=== PATIENT | male | born 1960 | race Caucasian/White ===

== ENCOUNTER 2020-11-04 07:41 | Observation (INO) ==
--- NOTE | 2020-09-30 13:50 | PAT Medication Instructions ---
Medication Instructions Date of Service September 30, 2020 Home Medications buspirone 15 mg tablet 15 mg PO TID naproxen sodium 220 mg tablet (Aleve) 220 mg PO BID PRN ASK your surgeon for instructions naproxen sodium 220 mg tablet (Aleve) 220 mg PO BID PRN Take morning of surgery With a small sip of water, OTHERWISE NOTHING TO EAT OR DRINK AFTER MIDNIGHT: buspirone 15 mg tablet 15 mg PO TID Other Notes If you have any questions please call us at [phone] or [phone] or [phone] or [phone]
--- NOTE | 2020-10-04 08:45 | Anesthesiology Consultation ---
Date of Service October 04, 2020 Assessment & Plan (1) Encounter for pre-operative examination: COVID screening: Per assessment on 10/04: Travel screen negative, no known COVID- 19 positive contacts or current COVID-19 related symptoms. Initial COVID vaccine 09/27. Second dose scheduled 10/25. Surgeon arranging preop COVID testing. Awaiting results. Chart Review Chart Review: Acceptable Risk for Surgery and Patient seen in Pre Admission Testing Teaching & Discussion Pre-Anesthesia Teaching/Discussion Notes: Instructed NPO after midnight before surgery,except medications with 15 cc of water. Medication instructions provided according to the PAT guidelines. History Surgery Operation Date: 11/04/20 14:05 Proposed Procedures p Right Anterior Total Hip Replacement - Raymundo Montalvo DO Height/Weight Height: 5 ft 10 in Weight: 121.6 kg Allergies Allergy/AdvReac Type Severity Reaction Status Date / Time No Known Allergies Allergy Unknown Verified 09/27/20 11:11 Medications Home Medications Medication Instructions Recorded Confirmed Last Taken buspirone 15 mg tablet 15 mg PO TID 09/27/20 09/27/20 Unknown naproxen sodium 220 mg tablet 220 mg PO BID PRN 09/27/20 09/27/20 Unknown (Aleve) Past Medical History Medical History Obesity Osteoarthritis Vertigo Pt states this is the reason for taking Buspirone Exercise / Class Metabolic Activity II 4-5 Yardwork/Stairs/Walk up hill (one FS (no CP, no SOB)) Past Surgical History Surgical History History of tooth extraction Hx of colonoscopy Hx of foot surgery Foreign body removal Past Anesthesia History No Hx of Anesthesia Complications and No Family Hx of Anesthesia Complications History of PONV No Hx of PONV and Hx of Motion Sickness (+ vertigo) Social History Smoking Status: Never smoker Do You Dip or Chew Tobacco: No Hx Alcohol Use: Yes alcohol intake frequency: a few times a week Hx Substance Use: No substance use type: does not use Review of Systems Patient denies chest pain, shortness of breath, dyspnea on exertion, fever, chills, cough, wheezing, palpitations. Physical Exam Vital Signs VITALS BP 127/79 P 65 TEMP 98.2 SP02 97%RA RESP 16 PHYSICAL Full cervical extension range of motion. Full TMJ range of motion. TMD 4 finger breaths Mallampati Score 3 Dentition: missing molars, left lower side tooth "repair" Lungs: clear throughout to auscultation Cardiac: regular rate and rhythm, no murmurs noted Spine: normal Carotid arteries: negative bruit Extremities: no edema Trimmed lakhani Short, thick neck Lab Results Anesthesia Preop Results Results Anesthesia Widget: WBC 6.30 K/uL (4.8-10.8) 10/04/20 Hgb 15.0 g/dL (14.0-18.0) 10/04/20 Hct 44.7 % (42-52) 10/04/20 Plt 206 K/uL (130-400) 10/04/20 Na 139 mmol/L (136-145) 10/04/20 K 4.5 mmol/L (3.5-5.1) 10/04/20 Cl 109 mmol/L (98-107) H 10/04/20 CO2 28 mmol/L (21-32) 10/04/20 BUN 19 mg/dl (7-18) H 10/04/20 Creat 0.80 mg/dl (0.6-1.4) 10/04/20 Glucose Level 91 mg/dl (70-99) 10/04/20 PT 9.8 Seconds (9.0-12.0) 10/04/20 PTT 26.0 Seconds (21.0-31.0) 10/04/20 INR 1.0 (0.9-1.1) 10/04/20 Blood Type A Negative 10/04/20 Antibody Screen NEGATIVE 10/04/20 Testing Electrocardiogram Date: 10/04/20 Normal sinus rhythm with sinus arrhythmia at 60 bpm. Unconfirmed report. Chest X-Ray Date: 10/04/20 Findings: + NAD
--- NOTE | 2020-11-03 16:47 | History & Physical Report ---
Date of Service November 03, 2020 Assessment & Plan (1) Osteoarthritis of right hip: We will proceed with a right anterior total hip arthroplasty. Postoperatively he will be started on aspirin for DVT prophylaxis and kept overnight in the hospital for postoperative medical management. [facility]. History of Present Illness Chief Complaint: Osteoarthritis of the right hip. 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 He has been having chronic worsening right hip and groin pain. X-rays and clinical examination have been diagnostic for advanced osteoarthritis of the right hip. After failing conservative treatment, he has elected to proceed with a right anterior total hip arthroplasty.. Allergies Allergy/AdvReac Type Severity Reaction Status Date / Time No Known Allergies Allergy Unknown Verified 09/27/20 11:11 Home Medications Medication Instructions Recorded Confirmed Type buspirone 15 mg tablet 15 mg PO TID 09/27/20 09/27/20 History naproxen sodium 220 mg tablet 220 mg PO BID PRN 09/27/20 09/27/20 History (Aleve) Past Med/Surg History Medical History Obesity Osteoarthritis Vertigo Pt states this is the reason for taking Buspirone Surgical History History of tooth extraction Hx of colonoscopy Hx of foot surgery Foreign body removal Social History Smoking Status: Never smoker Second Hand Exposure: No; Hx Alcohol Use: Yes Hx Substance Use: No Preferred Language: Hebrew Communication Ability: Effective Exchange Administrator Required: No Beliefs That Will Affect Care: None Current Living Situation: Spouse Feels Safe at Home: Yes Assistive Devices: Glasses Review of Systems All systems reviewed & are unremarkable except as noted in HPI & below. Physical Exam On physical examination the right hip, he has decreased range of motion. He has pain with forced internal and external rotation. His leg lengths are equal.. Constitutional WD/WN, vitals as above Eyes PERRL, conjunctivae normal, anicteric sclerae ENMT external ear and nose normal, oropharynx normal Neck trachea midline, no thyromegaly Respiratory normal respiratory effort Cardiovascular RRR, no murmur, no edema Gastrointestinal (Abdomen) normal bowel sounds, soft, nontender, no hepatosplenomegaly Psychiatric A+Ox3, euthymic affect Results & Data Results & Data Laboratory Results . Diagnostic Findings X-rays of the right hip do show advanced osteoarthritis with joint space narrowing, osteophyte formation, and [id number] articulation. PG Care Time/CCT Total # of Minutes Spent Total Time Spent with Patient: Total time spent is greater than 50% in coordination of care (as documented) at patient's floor/unit and/or counseling patient: Coding Level of Care Code None Diagnoses Osteoarthritis of right hip M16.11
[~2020-11-04 07:41] MED LIST: ACETAMINOPHEN 500 MG TAB PO SCH; BUPIVACAINE 0.5 % 5 MG/1 ML PF 10ML VIAL ONE; FAMOTIDINE 20 MG TAB PO SCH; GABAPENTIN 600 MG DOSE PO SCH; LR 500ML BOLUS, THEN 15ML/HR IV SCH; LR 60ML/HR IV SCH; ROPIVACAINE 0.5% HCL/PF 150 MG, BUPIVACAINE 0.75% MPF 20 ML, EPINEPHrine 30MG/30ML (OR ... INSTIL SCH; TRANEXAMIC ACID 1,000 MG **IV Pre-op IV SCH; TRANEXAMIC ACID 1,000 MG in 0.9 % SODIUM CHLORIDE 100 ML IR SCH; dexAMETHasone 4 MG TAB PO SCH
--- NOTE | 2020-11-04 08:10 | History & Physical Bridge Note ---
Date of Service November 04, 2020 History & Physical Bridge Note I have examined the patient, reviewed the History & Physical and in the interval since the performance of the History & Physical I have noted the following changes of clinical significance: no changes noted
[2020-11-04] MEDS ORDERED: MIDAZOLAM HCL 1 MG/ML 2ML VIAL ONE (09:20)
[2020-11-04] MEDS ORDERED: fentaNYL citrate 100 MCG/2 ML VIAL ONE (09:20)
[2020-11-04] MEDS ORDERED: fentaNYL citrate 100 MCG/2 ML VIAL IV PRN (10:04)
[2020-11-04] MEDS ORDERED: ONDANSETRON INJ 2 MG/ML 2 ML VIAL IV PRN ×2 (10:04→13:40)
[2020-11-04] MEDS ORDERED: ATROPINE SULFATE 0.1 MG/ML 10ML SYR IV PRN (10:04)
[2020-11-04] MEDS ORDERED: ePHEDrine sulfate 50 MG/ML AMP IV PRN (10:04)
[2020-11-04] MEDS ORDERED: ORTHO JOINT ANESTHETIC ONE (10:48)
[2020-11-04] MEDS ORDERED: GLYCOPYRROLATE 0.2 MG/ML VIAL ONE (11:23)
[2020-11-04] MEDS ORDERED: ONDANSETRON INJ 2 MG/ML 2 ML VIAL ONE (11:24)
[2020-11-04] MEDS ORDERED: PROPOFOL IV EMULSION 10 MG/ML 20 ML VIAL IV ONE (11:24)
--- NOTE | 2020-11-04 12:27 | Operative Report ---
PG Post Operative Report Pre & Post Diagnosis Operation Date: 11/04/20 10:00 Pre-Op Diagnosis: Right Hip Osteoarthritis Post-Op Diagnosis: Right Hip Osteoarthritis I identified the patient and participated in the time-out.: Yes Procedure Operation Date: 11/04/20 10:00 Actual Procedures p Right Anterior Total Hip Arthroplasty, Uncemented(Right) - Raymundo Montalvo DO Surgeon Raymundo Montalvo DO Slabber Raymundo Hamlin PAC Estimated Blood Loss 300 Findings Consistent with Post-Op Diagnosis Specimens Right femoral head Complications none Disposition Disposition: Recovery Room Indications Raad is a pleasant 60-year-old male who is been doing chronic increasing right hip and groin pain. X-rays and clinical examination have been diagnostic for advanced osteoarthritis of the right hip. After failing conservative treatment, he has elected proceed with a right total hip arthroplasty. Description of Procedure Implants used I used a [employer]immer[employer]omet total hip arthroplasty system with a size 4 standard offset Avenir Complete stem, a 54 mm G7 cup, an E1 polyethylene liner, a 40 mm ceramic head with a 0 neck. Raad arrived at the hospital for the above procedure. He was seen in the preoperative holding area and the operative extremity was identified and signed. He was given a spinal anesthetic, a preoperative antibiotic, and TXA. He was then taken back to the operating room and laid on the table in the supine position. He was given basic sedation. The operative leg was secured to a Puristst leg positioner. The hip was then prepped and draped in sterile fashion. A timeout was done and the patient and the operative extremity was properly identified. An anterior approach was used. Dissection was taken down through the fascia and the tensor muscle belly was retracted laterally and the rectus was retracted medially. The circumflex vessels were identified and ligated. The capsule was then incised and tagged for later repair. The femoral neck was then cut and the femoral head was removed. The acetabulum was exposed. Time was spent doing a complete circumferential labral release. Sequential reaming of the acetabulum up to a size 53 reamer was done. Final reamings were done under fluoroscopy to ensure appropriate version. A Biomet 54 mm G7 cup was then impacted into place. The E1 polyethylene liner was then snapped into place. Surrounding soft tissues were then injected with 100 cc of an orthopedic pain control cocktail. The proximal femur was then exposed. Sequential broaching up to a size broach was done. Off that broach a size 40 head with a 0 neck was trialed. The hip was reduced and fluoroscopic images showed anatomic alignment of the implants in acceptable length. The broach was removed. The final size 4 standard offset Avenir Complete stem was then impacted into place. A ceramic 40 mm head with a 0 neck was then impacted onto the stem and the hip was reduced. Final fluoroscopic images showed anatomic alignment of the hip. The capsule was then closed with #1 Vicryl suture. A dilute betadyne lavage was then done for 3 minutes. The joint was then irrigated with normal saline solution. The fascia was closed with #1 PDS suture. Skin was closed with 2-0 Vicryl, timbo, and a Silverlon dressing. He was then transferred to a hospital bed and taken to the post anesthesia care unit in stable condition. He tolerated the procedure well. Raymundo Hamlin PA-C, was present for the entire procedure. He was critical for patient positioning, prepping, draping, retraction exposure, wound closure and application of sterile dressing. I attest to the content of the Intraoperative Record and any orders documented therein. Any exceptions are noted below.
--- NOTE | 2020-11-04 12:36 | Fluoroscopy Report ---
FL hip RT 1V CLINICAL HISTORY: RT ANT COMPARISON STUDY: None FLUOROSCOPY TIME: 22nd. NUMBER OF FLUOROSCOPIC IMAGES: 2 FINDINGS: Intraoperative fluoroscopic images presented for review and show acetabular and femoral component of the right hip prosthetic joint which is appear to be in expected position. IMPRESSION: As above. ACT 112: Negative or not required by law. The above report was generated using voice recognition software. It may contain grammatical, syntax o r spelling errors. Electronically signed by: Naida Fine DO 11/04/2020 12:35 PM
--- NOTE | 2020-11-04 13:20 | XRay Report ---
AP PELVIS, AP AND CROSSTABLE LATERAL RIGHT HIP History: Right total hip arthroplasty. Degenerative arthritis. Postop. FINDINGS: The patient is status post a right total hip arthroplasty. The hardware is intact. No fract ure or dislocation. Skin timbo are in place. There is severe osteoarthritis within the left hip wit h flattening of the superior femoral head. This may represent superimposed avascular necrosis. IMPRESSION: Right total hip arthroplasty. No evidence for hardware complication. There is severe osteoarthritis w ithin the left hip with suggestion of superimposed avascular necrosis. ACT 112: Negative or not required by law. Electronically signed by: Beck Wynn M.D. 11/04/2020 1:19 PM
--- NOTE | 2020-11-04 13:20 | Anesthesiology Progress Note ---
Date of Service November 04, 2020 Anesthesia Post Procedure Vital Signs Vital Signs: Temp Pulse Resp BP Pulse Ox 11/04/20 13:15 79 16 108/71 94 11/04/20 13:05 83 16 108/71 92 11/04/20 12:55 82 16 105/75 96 11/04/20 12:49 97.5 F L 91 H 16 105/70 96 11/04/20 08:08 98.2 F 65 18 128/78 96 Pain Intensity Right Hip: Pain Intensity: 0 Transfer of Care Handoff Completed per policy Notes Mental Status: alert / awake / arousable and participated in evaluation Patient Amnestic to Procedure: Yes Nausea / Vomiting: adequately controlled Pain: adequately controlled Airway Patency, RR, SpO2: stable & adequate BP & HR: stable & adequate Hydration State: stable & adequate Neuraxial Anesthesia: was administered and sensory block is resolving Anesthetic Complications: no major complications apparent and Pt Satisfied with anesthetic care
[2020-11-04] MEDS ORDERED: SODIUM CHLORIDE 0.9% 1000ML 1,000 ML IV SCH (13:40)
[2020-11-04] MEDS ORDERED: NALOXONE HCL 0.4 MG/1 ML VIAL/CARP IV PRN (13:40)
[2020-11-04] MEDS ORDERED: MAGNESIUM HYDROXIDE SUSP 30 ML UDC PO PRN (13:40)
[2020-11-04] MEDS ORDERED: oxyCODONE HCL IR 5 MG TAB (IMMEDIATE RELEASE) PO PRN (13:40)
[2020-11-04] MEDS ORDERED: HYDROmorphone INJ 0.5 MG/0.5 ML SYR IV PRN (13:40)
[2020-11-04] MEDS ORDERED: bisacodyL 10 MG SUPP PR PRN (13:40)
[2020-11-04] MEDS ORDERED: METOCLOPRAMIDE HCL INJ 5 MG/ML 2 ML VIAL IV PRN (13:40)
[2020-11-04] MEDS: ACETAMINOPHEN 500 MG TAB PO SCH ×2 (14:18→22:31)
[2020-11-04] MEDS: busPIRone 15 MG TAB PO SCH ×2 (14:18→22:31)
[2020-11-04] MEDS: KETOROLAC 30 MG/ML VIAL IV SCH ×2 (16:47→22:32)
[2020-11-04] MEDS: ceFAZolin 2000MG 2,000 MG/15 ML SYR IV SCH (18:08)
[2020-11-04] MEDS ORDERED: SENNA 8.6 MG TAB PO SCH (21:00)
[2020-11-04] MEDS: ASPIRIN 81 MG ECTAB PO SCH (22:30)
[2020-11-04] MEDS: DOCUSATE SODIUM 100 MG CAP PO SCH (22:32)
[2020-11-05] MEDS: ceFAZolin 2000MG 2,000 MG/15 ML SYR IV SCH (03:11)
[2020-11-05] MEDS: KETOROLAC 30 MG/ML VIAL IV SCH ×2 (03:11→08:31)
[2020-11-05] MEDS: ACETAMINOPHEN 500 MG TAB PO SCH (05:45)
--- NOTE | 2020-11-05 07:55 | Orthopedic Progress Note ---
Date of Service November 05, 2020 Assessment & Plan (1) Status post right hip replacement: Overall is doing well. Is not any much pain in the right hip. He will be seen by physical therapy today for ambulation and range of motion exercises. He is on aspirin twice a day for DVT prophylaxis. If he is doing okay he can be discharged home later today. He will follow-up with orthopedics in 2 weeks. Subjective Raad was seen and examined at bedside this morning. Overall is doing fairly well. Is not having too much pain in the hip. He has been up and ambulating into the hallways. He has no complaints.. Review of Systems All systems reviewed & are unremarkable except as noted in HPI & below. Physical Exam On physical examination of the right hip, the dressing is clean and dry. His leg lengths are equal. He has active dorsiflexion and plantarflexion of his right ankle.. Results & Data Results & Data Laboratory Results . Diagnostic Findings Postoperative x-rays of the right hip show the prosthesis to be in anatomic alignment without any evidence of fracture, dislocation, or loosening. PG Care Time/CCT Total # of Minutes Spent Total Time Spent with Patient: Total time spent is greater than 50% in coordination of care (as documented) at patient's floor/unit and/or counseling patient: Coding Level of Care Code 54384 Post Operative Follow-Up Diagnoses Status post right hip replacement Z96.641
--- NOTE | 2020-11-05 07:57 | Discharge Summary ---
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 He has been having chronic worsening right hip and groin pain. X-rays and clinical examination have been diagnostic for advanced osteoarthritis of the right hip. After failing conservative treatment, he has elected to proceed with a right anterior total hip arthroplasty.. Admission Exam (Per Admitting) On physical examination the right hip, he has decreased range of motion. He has pain with forced internal and external rotation. His leg lengths are equal.. Principal Diagnosis Same as "Discharge Diagnosis" noted below under Discharge Instructions. Discharge Exam On physical examination of the right hip, the dressing is clean and dry. His leg lengths are equal. He has active dorsiflexion and plantarflexion of his right ankle.. Discharge Data Procedures Performed Operation Date: 11/04/20 10:00 Actual Procedures p Right Anterior Total Hip Arthroplasty, Uncemented(Right) - Raymundo Montalvo DO Ordered Studies 11/04/20 10:00 FL hip RT 1V Routine Hospital Course (1) Status post right hip replacement: On November 04, 2020 Raad arrived at [facility] and underwent a right hip replacement without complication. He had a spinal anesthetic. Postoperatively he was started on aspirin for DVT prophylaxis and transferred to the general orthopedic floors. His hospital course was uneventful. On postop day #1 his vital signs were stable and his pain was well controlled. He was able to participate well with physical therapy with ambulation and range of motion exercises. He was then discharged home. He will follow-up with orthopedics in 2 weeks. PG Care Time/CCT Total # of Minutes Spent Total Time Spent with Patient: Total time spent is greater than 50% in coordination of care (as documented) at patient's floor/unit and/or counseling patient: Discharge Plan Discharge Items Patient Disposition: Home - Home Health Services Reason For Visit: Right Hip Osteoarthritis Discharge Diagnosis: Right hip replacement Activity: As commented below Non-emergency contact: Surgeon Call non-emergency contact if: your wound has increased redness and your wound has increased drainage Follow-up/Referrals: Axel Romeo MD [Primary Care Provider] - Diet: Regular Addtl Attending Provider Instructions: Activity and Therapy Recommendations: * If you are using [facility] then therapy will be provided at your home until they feel you have accomplished all of your goals. * If you are using [facility] then Physical Therapy will be provided until they feel you are ready to start Outpatient Physical Therapy. * If you are not using home therapy then Outpatient Physical Therapy should start about 3-5 days from your day of surgery. Therapy will last about 6-10 weeks * You were shown a series of exercises in the hospital. Do these exercises three times each day including the exercises you were shown in physical therapy. * Get up and walk several times each day.~ For the first four weeks, try not to stand or walk for more than one hour at a time. If you do stand or walk for more than one hour, you will not hurt anything, but your leg will likely swell.~~ * As you feel comfortable, you may change from the walker or crutches to a cane and~then to independent walking. Medications: * Narcotic You will likely be sent home from the hospital with a prescription for the narcotic pain medication that worked best throughout your stay. * Aspirin Most patients will be required to take Aspirin 81mg twice a day for 6 weeks after surgery. This is obtained [id number] and a prescription is not necessary. * Other medications may be prescribed for specific circumstances. If you have any questions, please call the office at . * Resume previous home medications unless otherwise instructed TEDs/Elastic Stockings: The white elastic stockings help limit swelling and prevent blood clots from forming in your legs. The more you wear them, the more they work. Wear them for six weeks. Dressing Care: Leave the Silverlon dressing in place for 7 days. After 7 days you may remove the dressing. If the incision is not draining then you may leave the timbo open to air. If there is a little bit of drainage or if the timbo are getting stuck on your clothing then cover the incision with a dry dressing. The timbo will be removed at your 2 week follow-up appointment. Showering: You may shower with the Silverlon dressing in place. Do not let the shower spray hit the dressing directly. Pat the Silverlon dressing dry. If the dressing becomes wet underneath, then simply remove the dressing. Keep the incision dry until you are 7 days out from the day of surgery. After 7 days you may remove the Silverlon dressing and shower with the timbo exposed. Let soapy water run over the timbo and pat them dry. Do not scrub or soak the incision. Things To Watch For: * Drainage from the incision site that occurs more than one week after your surgery. * Increased redness at the incision site. * Fever above 102 degrees Fahrenheit. * Unusual chest pain or shortness of breath. * Call [facility] at with any of the above problems Follow-Up Visit: Follow-up with Dr. Montalvo's PA (Raymundo Hamlin) 2-3 weeks after your day of surgery. He will remove your timbo and answer any questions. If you have any additional questions or concerns, Dr Montalvo is usually in the office at the same time and will be available An appointment was probably scheduled when you signed-up for surgery in the office. If you have any questions call Office Instructions: More detailed instructions as well as Frequently Asked Questions were provided in a folder by our office when you signed-up for surgery. Please review these instructions when you get home. If you have any further questions or concerns, please feel free to call the office at [phone] Pending Studies at Discharge: No Stand-Alone Forms: My [facility], Smoking Cessation Medications and DC Order Prescriptions: New oxycodone 5 mg Tablet 5 mg PO Q4H PRN (Reason: pain) Qty: 30 RF: 0 aspirin 81 mg Tablet,Delayed Release (Dr/Ec) 81 mg PO BID Qty: 0 RF: 0 Continued naproxen sodium [Aleve] 220 mg Tablet 220 mg PO BID PRN (Reason: Pain) RF: 0 buspirone 15 mg Tablet 15 mg PO TID RF: 0 Discharge Orders: Discharge Order (Routine); Ordered 11/05/20 Ordered By: Raymundo Montalvo Admission Data Admit Date/Time: 11/04/20 12:48 Attending Provider: Raymundo Montalvo Admit Provider: Raymundo Montalvo Primary Care Provider: Axel Romeo
[2020-11-05] MEDS ORDERED: dexAMETHasone 4 MG TAB PO SCH (08:00)
[2020-11-05] MEDS: busPIRone 15 MG TAB PO SCH (08:24)
[2020-11-05] MEDS: DOCUSATE SODIUM 100 MG CAP PO SCH (08:24)
[2020-11-05] MEDS: ASPIRIN 81 MG ECTAB PO SCH (08:24)
[2020-11-05] MEDS ORDERED: MULTIVITAMIN TAB PO SCH (09:00)
== END 2020-11-05 13:09 | disposition home health service (06) ==
LOC: 3E 07:41 → ASU 07:41

== ENCOUNTER 2021-06-27 06:32 | Observation (INO) ==
--- NOTE | 2021-06-22 18:15 | History & Physical Report ---
Date of Service June 22, 2021 Assessment & Plan (1) Osteoarthritis of left hip: We will proceed with a left anterior total of arthroplasty. Postoperatively he will be started on aspirin for DVT prophylaxis and kept overnight in the hospital for postoperative medical management. He plans [facility] discharge. History of Present Illness Chief Complaint: Arthritis of the left hip. Primary Care Provider: Axel Romeo MD Raad is a pleasant 60-year-old male who has been dealing with chronic worsening left hip and groin pain. X-rays and clinical examination have been diagnostic for advanced osteoarthritis of the left hip. He underwent a right anterior total hip arthroplasty in November 2020 and did well. Unfortunately, he is dealing with a lot of left hip and groin pain. After failing extensive conservative treatment, he has elected proceed with a left anterior total hip arthroplasty.. Allergies Allergy/AdvReac Type Severity Reaction Status Date / Time No Known Allergies Allergy Unknown Verified 06/22/21 15:00 Home Medications Medication Instructions Recorded Confirmed Type buspirone 15 mg tablet 15 mg PO TID 09/27/20 06/22/21 History naproxen sodium 220 mg tablet 220 mg PO BID PRN 09/27/20 06/22/21 History (Aleve) amoxicillin 500 mg tablet 2,000 mg PO ONCE PRN #4 tab 02/01/21 06/22/21 Rx Past Med/Surg History Medical History Obesity Osteoarthritis Vertigo Pt states this is the reason for taking Buspirone Surgical History History of right hip replacement History of tooth extraction Hx of colonoscopy Hx of foot surgery Foreign body removal Hx of vasectomy Family History Father Family history of diabetes mellitus Other No family history of adverse response to anesthesia Social History Smoking Status: Never smoker Second Hand Exposure: No; Hx Alcohol Use: Yes Alcohol type: beer Preferred Language: Dominican Communication Ability: Effective 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 Physical Exam Examination of his left hip, he has pain in his groin. He is about 20 degrees of internal rotation and 20 degrees of external rotation. He has pain at end ranges of motion.. Constitutional WD/WN, vitals as above Eyes PERRL, conjunctivae normal, anicteric sclerae ENMT external ear and nose normal, oropharynx normal Neck trachea midline, no thyromegaly Respiratory normal respiratory effort Cardiovascular RRR, no murmur, no edema Gastrointestinal (Abdomen) normal bowel sounds, soft, nontender, no hepatosplenomegaly Psychiatric A+Ox3, euthymic affect Results & Data Results & Data Laboratory Results . Diagnostic Findings X-rays of the left hip and pelvis show advanced osteoarthritis with joint space narrowing, osteophyte formation, and [id number] articulation. PG Care Time/CCT Total # of Minutes Spent Total Time Spent with Patient: Total time spent is greater than 50% in coordination of care (as documented) at patient's floor/unit and/or counseling patient: Coding Level of Care Code None Diagnoses Osteoarthritis of left hip M16.12
--- NOTE | 2021-06-23 14:08 | Anesthesiology Consultation ---
Date of Service June 23, 2021 Assessment & Plan (1) Encounter for pre-operative examination: - COVID screening: Per assessment on 06/22: No known COVID-19 positive contacts or current COVID-19 related symptoms. Travel screen negative. Patient vaccinate d. Preop Covid test done 06/23 ([place]) is pending. - Preop labs: Patient was originally scheduled for 04/14/21 but surgery now r/s to 06/27/21. Preop labs done 03/15/21 were unremarkable but now out of date. Will update CBC, BMP, coags AM DOS. Chart Review Chart Review: Acceptable Risk for Surgery (pending preop labs AM DOS) and Patient NOT seen in Pre Admission Testing History Surgery Operation Date: 06/27/21 12:45 Proposed Procedures p Left Anterior Total Hip Arthroplasty - Raymundo Montalvo DO Height/Weight Height: 5 ft 10 in Weight: 117.934 kg Allergies Allergy/AdvReac Type Severity Reaction Status Date / Time No Known Allergies Allergy Unknown Verified 06/22/21 15:00 Medications Home Medications Medication Instructions Recorded Confirmed Last Taken buspirone 15 mg tablet 15 mg PO TID 09/27/20 06/22/21 11/04/20 05:15 naproxen sodium 220 mg tablet 220 mg PO BID PRN 09/27/20 06/22/21 2 Weeks Ago (Aleve) ~10/21/20 amoxicillin 500 mg tablet 2,000 mg PO ONCE PRN #4 tab 02/01/21 06/22/21 Unknown Past Medical History Medical History Obesity Osteoarthritis Vertigo Pt states this is the reason for taking Buspirone Past Family History Family History Father Family history of diabetes mellitus Other No family history of adverse response to anesthesia Past Surgical History Surgical History History of right hip replacement History of tooth extraction Hx of colonoscopy Hx of foot surgery Foreign body removal Hx of vasectomy Social History Smoking Status: Never smoker tobacco type: smokeless tobacco Do You Dip or Chew Tobacco: No (QUIT OVER 30 YEARS AGO) Hx Alcohol Use: Yes Alcohol type: beer alcohol intake frequency: a few times a week substance use type: does not use Testing Laboratory Results 03/15/21 WBC 6.92 H/H 15.4/45.5 PLATELETS 244 SODIUM 140 POTASSIUM 4.7 CHLORIDE 106 CO2 28 BUN 17 CREATININE 0.84 GLUCOSE 93 PT 10.4 PTT 26.9 INR 1.0 Electrocardiogram Date: 10/04/20 Normal sinus rhythm with sinus arrhythmia at 60 bpm. Normal EKG per cardio Chest X-Ray Date: 10/04/20 Findings: + NAD
[~2021-06-27 06:32] MED LIST changes: +BUPIVACAINE 0.5 % 5 MG/1 ML MPF 30ML VIAL ONE; -BUPIVACAINE 0.5 % 5 MG/1 ML PF 10ML VIAL ONE; +Ketorolac (*for OR use only*) 30 MG, dexAMETHasone 4 MG, KETAMINE HCL (**OR use only) 1... INFIL SCH; -LR 500ML BOLUS, THEN 15ML/HR IV SCH; -ROPIVACAINE 0.5% HCL/PF 150 MG, BUPIVACAINE 0.75% MPF 20 ML, EPINEPHrine 30MG/30ML (OR ... INSTIL SCH; +TRANEXAMIC ACID 1,000 MG **IV Intra-op IV SCH; -TRANEXAMIC ACID 1,000 MG in 0.9 % SODIUM CHLORIDE 100 ML IR SCH; +ceFAZolin 2000MG 2,000 MG/15 ML SYR IV SCH
[2021-06-27 07:07] LABS: Basophils # (auto) 0.06 K/uL (0-0.2); Basophils % (auto) 0.8 %; Eosinophils # (auto) 0.17 K/uL (0-0.5); Eosinophils % (auto) 2.2 %; Hematocrit (blood only) 46.3 % (42-52); Hemoglobin 15.9 g/dL (14.0-18.0); Immature Granulocytes # (auto) 0.01 K/uL (0.00-0.02); Immature Granulocytes % (auto) 0.1 %; Lymphocytes % (auto) 20.8 %; Mean Corpuscular Hemoglobin 30.5 pg (25-34); Mean Corpuscular Volume 88.7 fL (80-100); Mean Platelet Volume 9.1 fL (7.4-10.4); Monocytes # (auto) 0.73 K/uL (0.11-0.59); Monocytes % (auto) 9.5 %; Neutrophils # (auto) 5.11 K/uL (1.4-6.5); Neutrophils % (auto) 66.6 %; Platelet Count 251 K/uL (130-400); RDW Coefficient of Variation 13.1 % (11.5-14.5); RDW Standard Deviation 42.4 fL (36.4-46.3); Red Blood Count 5.22 M/uL (4.7-6.1); White Blood Count 7.68 K/uL (4.8-10.8)
[2021-06-27 07:14] LABS: Mean Corpuscular Hgb Conc 34.3 g/dL (32-36)
[2021-06-27 07:21] LABS: Partial Thromboplastin Time 27.3 Seconds (21.0-31.0); Prothrombin Time 10.6 Seconds (9.0-12.0)
[2021-06-27 07:30] LABS: BUN Creatinine Ratio 20.4 (10-20); Calcium 9.3 mg/dl (8.5-10.1); Creatinine Clr Calc Pharmacy 99.8 ml/min; Est GFR (African American) 95.4 ml/min; Est GFR (Non-African American) 82.3 ml/min; Potassium 4.1 mmol/L (3.5-5.1)
[2021-06-27] MEDS ORDERED: MIDAZOLAM HCL 1 MG/ML 2ML VIAL ONE (08:00)
[2021-06-27] MEDS ORDERED: fentaNYL citrate 100 MCG/2 ML VIAL ONE (08:00)
--- NOTE | 2021-06-27 08:23 | History & Physical Bridge Note ---
Date of Service June 27, 2021 History & Physical Bridge Note I have examined the patient, reviewed the History & Physical and in the interval since the performance of the History & Physical I have noted the following changes of clinical significance: no changes noted
[2021-06-27] MEDS ORDERED: ORTHO JOINT ANESTHETIC ONE (08:38)
[2021-06-27] MEDS ORDERED: fentaNYL citrate 100 MCG/2 ML VIAL IV PRN (09:04)
[2021-06-27] MEDS ORDERED: ONDANSETRON INJ 2 MG/ML 2 ML VIAL IV PRN ×2 (09:04→11:59)
[2021-06-27] MEDS ORDERED: ePHEDrine sulfate 50 MG/ML AMP IV PRN (09:04)
[2021-06-27] MEDS ORDERED: ATROPINE SULFATE 0.1 MG/ML 10ML SYR IV PRN (09:04)
[2021-06-27] MEDS ORDERED: PROPOFOL IV EMULSION 10 MG/ML 20 ML VIAL IV ONE (09:46)
[2021-06-27] MEDS ORDERED: LIDOCAINE 2% 2 ML VIAL/AMP(20MG/ML) INFIL ONE (09:46)
--- NOTE | 2021-06-27 10:44 | Operative Report ---
PG Post Operative Report Pre & Post Diagnosis Operation Date: 06/27/21 09:05 Pre-Op Diagnosis: Osteoarthritis of left hip Post-Op Diagnosis: Osteoarthritis of left hip I identified the patient and participated in the time-out.: Yes Procedure Operation Date: 06/27/21 09:05 Actual Procedures p Left Anterior Total Hip Arthroplasty(Left) - Raymundo Montalvo DO Surgeon Raymundo Montalvo, Pigment Processor Raymundo Hamlin PAC Estimated Blood Loss 250 Findings Consistent with Post-Op Diagnosis Specimens Left femoral head Complications none Disposition Disposition: Recovery Room Indications Raad is a pleasant 61-year-old male who is been dealing with chronic increasing left hip pain. X-rays and clinical examination have been diagnostic for advanced arthritis of the left hip. After failing conservative treatment, he elected proceed with a left anterior total hip arthroplasty. Description of Procedure Implants used I used a [employer]immer[employer] total hip arthroplasty system with a size 4 standard offset Avenir Complete stem, a 54mm G7 cup with a 25mm screw, an E1 polyethylene liner, a 40mm ceramic head with a +3.5 neck. Raad arrived at the hospital for the above procedure. He was seen in the preoperative holding area and the operative extremity was identified and signed. He was given a spinal anesthetic, a preoperative antibiotic, and TXA. He was then taken back to the operating room and laid on the table in the supine position. He was given basic sedation. The operative leg was secured to a Puristst leg positioner. The hip was then prepped and draped in sterile fashion. A timeout was done and the patient and the operative extremity was properly identified. An anterior approach was used. Dissection was taken down through the fascia and the tensor muscle belly was retracted laterally and the rectus was retracted medially. The circumflex vessels were identified and ligated. The capsule was then incised and tagged for later repair. The femoral neck was then cut and the femoral head was removed. The acetabulum was exposed. Time was spent doing a complete circumferential labral release. Sequential reaming of the acetabulum up to a size 53 reamer was done. Final reamings were done under fluoroscopy to ensure appropriate version. A Biomet 54mm G7 cup was then impacted into place. A single 25 mm screw was placed. The E1 polyethylene liner was then snapped into place. Surrounding soft tissues were then injected with 100 cc of an orthopedic pain control cocktail. The proximal femur was then exposed. Sequential broaching up to a size 4 broach was done. Off that broach a size 40 head with a +3.5 neck was trialed. The hip was reduced and fluoroscopic images showed anatomic alignment of the implants in acceptable length. The broach was removed. The final size 4 standard offset Avenir Complete stem was then impacted into place. A ceramic 40mm head with a +3.5 neck was then impacted onto the stem and the hip was reduced. Final fluoroscopic images showed anatomic alignment of the hip. The capsule was then closed with #1 Vicryl suture. A dilute betadyne lavage was then done for 3 minutes. The joint was then irrigated with normal saline solution. The fascia was closed with #1 PDS suture. Skin was closed with 2-0 Vicryl, timbo, and a Silverlon dressing. He was then transferred to a hospital bed and taken to the post anesthesia care unit in stable condition. He tolerated the procedure well. Raymundo Hamlin PA-C, was present for the entire procedure. He was critical for patient positioning, prepping, draping, retraction exposure, wound closure and application of sterile dressing. I attest to the content of the Intraoperative Record and any orders documented therein. Any exceptions are noted below.
--- NOTE | 2021-06-27 11:27 | Fluoroscopy Report ---
FL hip LT 1V CLINICAL HISTORY: LEFT ANTERIOR HIP COMPARISON STUDY: Pelvis radiograph December 20, 2020. FLUOROSCOPY TIME: 18 seconds. FLUOROSCOPIC IMAGES: 2 FINDINGS: Fluoroscopy was provided during total left hip arthroplasty. There is an acetabular screw. Hardware is intact. No fracture is identified by fluoroscopy. IMPRESSION: Fluoroscopy provided during total left hip arthroplasty. ACT 112: Negative or not required by law. Electronically signed by: Lucien Koenig M.D. 06/27/2021 11:26 AM
--- NOTE | 2021-06-27 11:58 | XRay Report ---
SINGLE VIEW PELVIS; SINGLE VIEW LEFT HIP CLINICAL HISTORY: Postoperative examination. FINDINGS: An AP portable view of the hips and pelvis with a crosstable lateral portable view of the l eft hip are obtained. A bipolar left hip arthroplasty is in near-anatomic alignment. A single cortic al lag screw transfixes the acetabular cup. No acute fracture is identified. There are expected posto perative changes overlying the left hip including skin clips, subcutaneous gas, and soft tissue swell ing. A right hip arthroplasty is in place. IMPRESSION: Expected postoperative findings status post left hip arthroplasty. No acute fracture is s een. ACT 112: Negative or not required by law. Electronically signed by: Richard Narvaez M.D. 06/27/2021 11:57 AM
[2021-06-27] MEDS ORDERED: MAGNESIUM HYDROXIDE SUSP 30 ML UDC PO PRN (11:59)
[2021-06-27] MEDS ORDERED: NALOXONE HCL 0.4 MG/1 ML VIAL/CARP IV PRN (11:59)
[2021-06-27] MEDS ORDERED: HYDROmorphone INJ 0.5 MG/0.5 ML SYR IV PRN (11:59)
[2021-06-27] MEDS ORDERED: METOCLOPRAMIDE HCL INJ 5 MG/ML 2 ML VIAL IV PRN (11:59)
[2021-06-27] MEDS ORDERED: bisacodyL 10 MG SUPP PR PRN (11:59)
[2021-06-27] MEDS: KETOROLAC 30 MG/ML VIAL IV SCH ×2 (12:22→17:42)
[2021-06-27] MEDS: SODIUM CHLORIDE 0.9% 1000ML 1,000 ML IV SCH ×2 (12:23→21:36)
[2021-06-27] MEDS: ACETAMINOPHEN 500 MG TAB PO SCH ×2 (13:14→21:32)
[2021-06-27] MEDS: busPIRone 15 MG TAB PO SCH ×2 (13:15→21:32)
--- NOTE | 2021-06-27 15:04 | Anesthesiology Progress Note ---
Date of Service June 27, 2021 Anesthesia Post Procedure Vital Signs Vital Signs: Temp Pulse Resp BP Pulse Ox 06/27/21 13:41 36.8 C 76 16 95/57 L 94 06/27/21 12:45 36.4 C L 67 18 108/70 94 06/27/21 12:15 36.3 C L 62 18 95/66 L 96 06/27/21 11:45 36.4 C L 68 16 96/59 L 95 06/27/21 11:30 36.4 C L 69 16 108/61 94 06/27/21 11:20 73 16 102/68 94 06/27/21 11:10 60 16 105/68 96 06/27/21 11:00 70 18 104/74 94 06/27/21 10:53 36.6 C 68 18 110/61 94 06/27/21 07:02 36.8 C 66 20 128/80 95 Transfer of Care Handoff Completed per policy Notes Mental Status: alert / awake / arousable and participated in evaluation Nausea / Vomiting: adequately controlled Pain: adequately controlled Airway Patency, RR, SpO2: stable & adequate BP & HR: stable & adequate Hydration State: stable & adequate Neuraxial Anesthesia: was administered and sensory block is resolving Anesthetic Complications: no major complications apparent and Pt Satisfied with anesthetic care
[2021-06-27] MEDS: ceFAZolin 2000MG 2,000 MG/15 ML SYR IV SCH (16:36)
[2021-06-27] MEDS: oxyCODONE HCL IR 5 MG TAB (IMMEDIATE RELEASE) PO PRN (19:44)
[2021-06-27] MEDS ORDERED: SENNA 8.6 MG TAB PO SCH (21:00)
[2021-06-27] MEDS: DOCUSATE SODIUM 100 MG CAP PO SCH (21:32)
[2021-06-27] MEDS: ASPIRIN 81 MG ECTAB PO SCH (21:32)
[2021-06-28] MEDS: KETOROLAC 30 MG/ML VIAL IV SCH ×2 (00:31→05:47)
[2021-06-28] MEDS: ceFAZolin 2000MG 2,000 MG/15 ML SYR IV SCH (00:32)
[2021-06-28] MEDS: ACETAMINOPHEN 500 MG TAB PO SCH (05:47)
--- NOTE | 2021-06-28 06:06 | Orthopedic Progress Note ---
Date of Service June 28, 2021 Assessment & Plan (1) Status post left hip replacement: Overall is doing well. Is not any much pain in the left hip. He will be seen by physical therapy today for ambulation and range of motion exercises. He can be discharged home later today. He will follow-up with orthopedics in 2 weeks. Lobo Shankar was seen and examined at bedside this morning. Overall he is doing well. Is not having much pain in the left hip. He has been ambulating into the hallways. He has no complaints. Review of Systems All systems reviewed & are unremarkable except as noted in HPI & below. Physical Exam On physical examination of the left hip, the dressing is clean and dry. His leg lengths are equal. He is active dorsiflexion plantarflexion of his left ankle. Results & Data Results & Data Laboratory Results . Diagnostic Findings Postoperative x-rays of the left hip show the prosthesis to be in anatomic alignment without any evidence of fracture, desiccation, or loosening. PG Care Time/CCT Total # of Minutes Spent Total Time Spent with Patient: Total time spent is greater than 50% in coordination of care (as documented) at patient's floor/unit and/or counseling patient: Coding Level of Care Code 10973 Post Operative Follow-Up Diagnoses Status post left hip replacement Z96.642
--- NOTE | 2021-06-28 06:07 | Discharge Summary ---
Date of Service June 28, 2021 Admission HPI (Per Admitting) Raad is a pleasant 60-year-old male who has been dealing with chronic worsening left hip and groin pain. X-rays and clinical examination have been diagnostic for advanced osteoarthritis of the left hip. He underwent a right anterior total hip arthroplasty in November 2020 and did well. Unfortunately, he is dealing with a lot of left hip and groin pain. After failing extensive conservative treatment, he has elected proceed with a left anterior total hip arthroplasty.. Admission Exam (Per Admitting) Examination of his left hip, he has pain in his groin. He is about 20 degrees o f internal rotation and 20 degrees of external rotation. He has pain at end ranges of motion.. Principal Diagnosis Same as "Discharge Diagnosis" noted below under Discharge Instructions. Discharge Exam On physical examination of the left hip, the dressing is clean and dry. His leg lengths are equal. He is active dorsiflexion plantarflexion of his left ankle. Discharge Data Procedures Performed Operation Date: 06/27/21 09:05 Actual Procedures p Left Anterior Total Hip Arthroplasty(Left) - Raymundo Montalvo DO Ordered Studies 06/27/21 09:05 FL hip LT 1V Routine Hospital Course (1) Status post left hip replacement: On June 27, [address] [facility] and underwent a left anterior hip replacement without complication. He had a spinal anesthetic. Postoperatively he was started on aspirin for DVT prophylaxis and transferred to the general orthopedic floors. His hospital course was uneventful. On postop day #1 his vital signs were stable and his pain was well controlled. He was able to participate well with physical therapy doing ambulation and range of motion exercises. He was then discharged home. He will follow-up with orthopedics in 2 weeks. PG Care Time/CCT Total # of Minutes Spent Total Time Spent with Patient: Total time spent is greater than 50% in coordination of care (as documented) at patient's floor/unit and/or counseling patient: Discharge Plan Discharge Items Patient Disposition: Home - Home Health Services Reason For Visit: POST SURGICAL CARE Discharge Diagnosis: Left hip replacement Activity: Per Instructions section Non-emergency contact: Surgeon Call non-emergency contact if: your wound has increased redness and your wound has increased drainage Follow-up/Referrals: Axel Romeo MD [Primary Care Provider] - Diet: Regular Addtl Attending Provider Instructions: Activity and Therapy Recommendations: * If you are using [facility] then therapy will be provided at your home until they feel you have accomplished all of your goals. * If you are using [facility] then Physical Therapy will be provided until they feel you are ready to start Outpatient Physical Therapy. * If you are not using home therapy then Outpatient Physical Therapy should start about 3-5 days from your day of surgery. Therapy will last about 6-10 weeks * You were shown a series of exercises in the hospital. Do these exercises three times each day including the exercises you were shown in physical therapy. * Get up and walk several times each day.~ For the first four weeks, try not to stand or walk for more than one hour at a time. If you do stand or walk for more than one hour, you will not hurt anything, but your leg will likely swel l.~~ * As you feel comfortable, you may change from the walker or crutches to a cane and~then to independent walking. Medications: * Narcotic You will likely be sent home from the hospital with a prescription for the narcotic pain medication that worked best throughout your stay. * Aspirin Most patients will be required to take Aspirin 81mg twice a day for 6 weeks after surgery. This is obtained [id number] and a prescription is not necessary. * Other medications may be prescribed for specific circumstances. If you have any questions, please call the office at . * Resume previous home medications unless otherwise instructed TEDs/Elastic Stockings: The white elastic stockings help limit swelling and prevent blood clots from forming in your legs. The more you wear them, the more they work. Wear them for six weeks. Dressing Care: Leave the Silverlon dressing in place for 7 days. After 7 days you may remove the dressing. If the incision is not draining then you may leave the timbo open to air. If there is a little bit of drainage or if the timbo are getting stuck on your clothing then cover the incision with a dry dressing. The timbo will be removed at your 2 week follow-up appointment. Showering: You may shower with the Silverlon dressing in place. Do not let the shower spray hit the dressing directly. Pat the Silverlon dressing dry. If the dressing becomes wet underneath, then simply remove the dressing. Keep the incision dry until you are 7 days out from the day of surgery. After 7 days you may remove the Silverlon dressing and shower with the timbo exposed. Let soapy water run over the timbo and pat them dry. Do not scrub or soak the incision. Things To Watch For: * Drainage from the incision site that occurs more than one week after your surgery. * Increased redness at the incision site. * Fever above 102 degrees Fahrenheit. * Unusual chest pain or shortness of breath. * Call [facility] at with any of the above problems Follow-Up Visit: Follow-up with Dr. Montalvo's PA (Raymundo Hamlin) 2-3 weeks after your day of surgery. He will remove your timbo and answer any questions. If you have any additional questions or concerns, Dr Montalvo is usually in the office at the same time and will be available An appointment was probably scheduled when you signed-up for surgery in the office. If you have any questions call Office Instructions: More detailed instructions as well as Frequently Asked Questions were provided in a folder by our office when you signed-up for surgery. Please review these instructions when you get home. If you have any further questions or concerns, please feel free to call the office at [phone] Pending Studies at Discharge: No Stand-Alone Forms: My [facility] Medications and DC Order Prescriptions: New oxycodone-acetaminophen 5-325 mg tablet 1 tab PO Q6H PRN (Reason: pain) Qty: 30 RF: 0 aspirin 81 mg Tablet,Delayed Release (Dr/Ec) 81 mg PO BID 42 Days Qty: 84 RF: 0 Continued amoxicillin 500 mg tablet 2,000 mg PO ONCE PRN (Reason: prophylaxis) Qty: 4 RF: 2 naproxen sodium [Aleve] 220 mg Tablet 220 mg PO BID PRN (Reason: Pain) RF: 0 buspirone 15 mg Tablet 15 mg PO TID RF: 0 Discharge Orders: Discharge Order (Routine); Ordered 06/28/21 Ordered By: Raymundo Montalvo Admission Data Admit Date/Time: 06/27/21 10:53 Attending Provider: Raymundo Montalvo Admit Provider: Selvin,Raymundo A Primary Care Provider: Axel Romeo
[2021-06-28] MEDS: busPIRone 15 MG TAB PO SCH (07:37)
[2021-06-28] MEDS: DOCUSATE SODIUM 100 MG CAP PO SCH (07:37)
[2021-06-28] MEDS: ASPIRIN 81 MG ECTAB PO SCH (07:37)
[2021-06-28] MEDS ORDERED: dexAMETHasone 4 MG TAB PO SCH (08:00)
[2021-06-28] MEDS ORDERED: MULTIVITAMIN TAB PO SCH (09:00)
[2021-06-28] MEDS: oxyCODONE HCL IR 5 MG TAB (IMMEDIATE RELEASE) PO PRN (10:33)
== END 2021-06-28 11:47 | disposition home health service (06) ==
LOC: 3E 06:32 → ASU 06:32